=== PATIENT | female | born 1985 | race Caucasian/White ===

== ENCOUNTER 2019-03-30 07:09 | Inpatient (IN) | payer BC ==
[~2019-03-30] VITALS: Ht 172.7 cm; Wt 82.3 kg
[2019-04-01] VITALS (59 sets, daily range): BP systolic 96–1112; BP diastolic 52–87; PULSE 61–105; TEMP 97.4–98.7
--- NOTE | 2019-04-01 07:30 | NUR ---
Pt arrives on unit ambulatory for induction of labor. Changed into clean gown. EFM and toco applied. VSS. Denies vaginal bleeding, and LOF. Report GFM with occassional ctx. Admission assessment completed. IV started in LF. Labs drawn. LR infusing. Consents signed. Pt updated on POC. Safety reviewed. Bed locked in low position. Call light within reach. No questions or concerns at this time.
[2019-04-01] MEDS ORDERED: [UNRECOGNIZED DRUG - CODE] (07:37)
[2019-04-01] MEDS ORDERED: PRENATAL MVI (07:38)
[2019-04-01 08:12] LABS: BASO % 0.4 % (0.0-2.0); EOS % 0.4 % (0-4.0); GRAN # 5.9 (1.4-6.5); HEMATOCRIT 38.4 % (37.0-47.0); HEMOGLOBIN 13.4 g/dl (12.5-16.0); LYMPH # 1.4 (1.2-3.4); LYMPH % 17.4 % (20.0-51.0); MEAN CELL VOLUME 93 fl (80.0-100.0); MEAN CORPUSCULAR HEMOGLOBIN 32 pg (27.0-31.0); MEAN CORPUSCULAR HGB CONC 35 g/dl (33.0-37.0); MEAN PLATELET VOLUME 9.2 fl (7.4-10.4); MONO # 0.4 (0.1-0.6); MONO % 4.8 % (1.7-9.3); PLATELET COUNT 241 K/mm3 (130-400); RED BLOOD COUNT 4.14 M/mm3 (4.10-5.30); REDCELL DISTRIBUTION WIDTH-CV 12.8 % (11.5-14.5)
[2019-04-01 08:15] LABS: INR 0.9 (0.8-3.0); PROTHROMBIN TIME 10.3 SECONDS (9.7-12.8)
[2019-04-01 08:18] LABS: PARTIAL THROMBOPLASTIN TIME 28.9 SECONDS (26.0-37.0)
--- NOTE | 2019-04-01 12:00 | NUR ---
Pt sitting upright for epidural placement. Difficulty tracing FHR due to maternal position. RN at bedside adjusting monitors. FHR audible.
--- NOTE | 2019-04-01 18:30 | NUR ---
1830- Dr. Denis on unit at this time.
[2019-04-01] MEDS ORDERED: IBU600 MG PO (21:19)
[2019-04-01] MEDS ORDERED: LOVENOX 4040 MG/0.4 SQ (21:19)
[2019-04-02 01:09] VITALS: BP 120/71; PULSE 80; TEMP 97.9
[2019-04-02 04:00] VITALS: BP 98/53; PULSE 66; TEMP 97.8
[2019-04-02 07:07] LABS: HEMATOCRIT 35.6 % (37.0-47.0); HEMOGLOBIN 12.6 g/dl (12.5-16.0)
[2019-04-02 07:20] VITALS: BP 99/53; PULSE 66; TEMP 98
--- NOTE | 2019-04-02 09:14 | NUR ---
Initial visit; Parents thanked Fish Icer for offering congratulations and God's blessings for the of their son. Fish Icer thanked family for choosing [facility]. Patient mentioned the wonderful care she has received from nurses and [facility].
[2019-04-02 13:38] VITALS: BP 93/53; PULSE 63; TEMP 98.3
[2019-04-02 16:03] VITALS: BP 113/75; PULSE 89; TEMP 98
[2019-04-02 20:10] VITALS: BP 110/78; PULSE 77; TEMP 97.9
[2019-04-03 08:00] VITALS: BP 113/77; PULSE 92; TEMP 97.9
== END 2019-04-03 13:00 | disposition home or self-care (01) | DRG 806 ==
LOC: LDR 04-01 07:08 → OB 04-01 22:57
PROVIDERS: ADMIT Obstetrics & Gynecology
PROC: 10E0XZZ Delivery of Products of Conception, External Approach (ICD-10-PCS; principal; 2019-04-01)
PROC: 10907ZC Drainage of Amniotic Fluid, Therapeutic from Products of Conception, Via Natural or Artificial Opening (ICD-10-PCS; 2019-04-01)
PROC: 3E033VJ Introduction of Other Hormone into Peripheral Vein, Percutaneous Approach (ICD-10-PCS; 2019-04-01)
PROC: 0HQ9XZZ Repair Perineum Skin, External Approach (ICD-10-PCS; 2019-04-01)
DX: O99.284 Endocrine, nutritional and metabolic diseases complicating childbirth (principal); E72.12 Methylenetetrahydrofolate reductase deficiency; Z37.0 Single live birth; Z3A.40 40 weeks gestation of pregnancy; O70.0 First degree perineal laceration during delivery
CPT/HCPCS: J1650; J2405; J2590; J7120

== ENCOUNTER → 2019-04-07 | Outpatient (CLI) | payer BC ==
[~2019-04-07] MED LIST: IBU600 MG PO; LOVENOX 4040 MG/0.4 SQ; PRENATAL MVI; [UNRECOGNIZED DRUG - CODE]
--- NOTE | 2019-04-07 11:57 | NUR ---
Pt, Vannessa Joshi, presents to walk-in clinic with six day old baby boy, Cooper Joshi, for a evaluation. She is concerned about his weight. Cooper was born on [birth year] and weighed 8#0.8oz (3650 gms). He nursed well in the hospital, but pt has h/o difficult start with her previous child. Today Cooper weighs 7#6.1oz (3348 gms), an 8% loss from his weight. He had four green/yellow stools yesterday, and four-plus voids yesterday. She reports Cooper nurses upto 13 times per day and that last night he received 2oz formula by bottle which finally made him content. After bilaterally Cooper had a total weight gain per post feed weights of 26gms, 0.9oz. Latch is correct, pt's breasts palpate soft before feeding. Pt elects to bottle feed him for supplement; he takes an additional 30ml. POC: Three step feeding plan with 1oz supplement (EBM or formula). Handouts about increasing milk supply provided, as well as herbal supplement suggestions. F/U: Cooper has an appointment with Dr. Lopez this afternoon. Pt will contact this LC to determine weight check opportunity later this week. Pt verbalizes understanding, questions invited and answered.
== END ==
LOC: LAC 10:09
DX: Z39.1 Encounter for care and examination of lactating mother (principal); Z71.89 Other specified counseling

== ENCOUNTER → 2019-04-14 | Outpatient (CLI) | payer BC ==
--- NOTE | 2019-04-14 12:35 | NUR ---
Vannessa Good into the outpatient clinic with 13 day old Cooper for breast for evaluation and weight check. Vannessa brought into the clinic last week with concerns regarding his weight gain. weight on 04/01/19 was noted as 8# 0.8 oz (3650 g). Last week, Cooper's prefeed weight was noted as 7#6.1 oz (3348 g), an 8% weight loss from weight. Since last week, Vannessa states she has been power pumping once per day and pumping after feeds two times per day. Vannessa states she feels like her milk supply has increase sufficiently. Vannessa states that Cooper has been nursing approx 6 times per day and taking a [address] of a bottle once a day. She states she is also supplementing 1 oz after feeds approx two times per day. Vannessa reports diapers to be WNL. Today, Cooper's prefeed weight was noted as 8# 3.3 oz, a 13 oz gain from last weeks prefeed weight. Cooper nursed bilaterally while in clinic and had a gain of 42 g. Vannessa states Cooper ate shortly before coming into clinic, so she feels he typically would have had better intake. Vannessa verbalizes she is comfortable with the feeding plan she has been doing and states doing mixed feedings has worked best for her family. Vannessa also expressed concern regarding getting milk blebs on her left nipple. LC discussed ways to relieve blebs such as massage and warmth to the area. POC: Continue to BF/ bottle ad yamilet, pumping for substituted bottles and aim for atleat 8 feedings per day. Continue to offer 1-2 oz EBM after less successful sessions. Return next week for weight check. Questions encouraged and answered. Understanding verbalized.
== END ==
LOC: LAC 10:41
DX: Z39.1 Encounter for care and examination of lactating mother (principal); Z71.89 Other specified counseling

== ENCOUNTER → 2019-04-21 | Outpatient (CLI) | payer BC ==
--- NOTE | 2019-04-21 13:33 | NUR ---
Pt, Vannessa Joshi, presents to walk-in clinic with 3 week old baby boy, Cooper Joshi, for a evalution. They have been attending clinic as Vannessa's first baby took several weeks before nursing well. Cooper was born on [birth year] and weighed 8#0.8oz. Last week his weight was 8#3.3oz, Today's weight is 9#1.5oz. Pt reports Cooper breastfeeds about every 3 hours. He receives a 3.5-4oz bottle of formula at bedtime and she pumps to save the milk for returning to work. If she happens to pump and Cooper is hungry shortly after she will provie that breastmilk by bottle to him. Pt breastfeeds Cooper indpendatly and he has a weight gain of 3.1oz after. Pt states the milk bleb that was on her nipple last week has resolved. POC: Continue with supplemental bottle at bedtime and pumping to help save milk for RTW. F/U: Walk-in clinic as desired. Questions invited and answered.
== END ==
LOC: OLC 10:38
DX: Z39.1 Encounter for care and examination of lactating mother (principal); Z71.89 Other specified counseling

== ENCOUNTER → 2019-04-28 | Outpatient (CLI) | payer BC ==
--- NOTE | 2019-04-28 11:58 | NUR ---
Vannessa Good into the outpatient clinic with 4 week old Cooper for weight check. Vannessa and Cooper have been in the clinic for the last several weeks, please see previous notes. Cooper was born on [birth year] with a weight of 8# 0.8 oz. Last week Cooper's prefeed weight was 9# 1.5 oz. Today's prefeed weight is 9 # 12.8 oz, a gain of 11.3 oz. Vannessa states Cooper has been strictly and nurses 8 times per day and reports diapers to be WNL. Vannessa expresses concern that Cooper is only nursing approx 7 min. per breast and to be spitting up occasionally. While in clinic, Cooper nursed bilaterally and gained a total of 110 gms. EVELYN discussed that he is nursing efficiently and no concerns at this time for the short feeding times. EVELYN also discussed that spitting up occasionally is also not concerning at this point if weight gain is appropriate. POC: Continue to feed ad yamilet. Return to clinic for weight check next week if concerned.
== END ==
LOC: LAC 10:41
DX: Z39.1 Encounter for care and examination of lactating mother (principal); Z71.89 Other specified counseling